=== PATIENT | male | born 1970 | race Hispanic/Latino ===

== ENCOUNTER 2018-12-28 22:27 | Emergency (ER) | payer BC ==
[2018-12-28] MEDS ORDERED: NA CHLORIDE 0.9% 1,000 ML ONE (23:20)
[2018-12-28] MEDS ORDERED: KETOROLAC 30 MG/ML INJ ONE (23:20)
[2018-12-28 23:39] LABS: Absolute Lymphocytes (CBC) 1.8 K/uL (0.7-4.9); Basophils % 0.2 % (0-1.3); Hematocrit 36.5 % (39.6-49.0); Lymphocytes % 20.7 % (15.3-44.8); MPV 10.2 fL (7.6-11.3); RBC Red Blood Cell Count 4.38 M/uL (4.33-5.43)
[2018-12-28 23:48] LABS: Albumin 3.1 g/dL (3.4-5.0); Bilirubin Total 0.4 mg/dL (0.2-1.0); Potassium 3.9 mmol/L (3.5-5.1); Protein, Total 7.5 g/dL (6.4-8.2)
[2018-12-29] MEDS ORDERED: SMZ./TMP. 800/160 MG TABLET ONE (00:08)
[2018-12-29] MEDS ORDERED: DOXYCYCLINE 100 MG CAP PO ONE (00:09)
--- NOTE | 2018-12-29 00:21 | ER ---
Nurse's Notes [facility] Name: Jeff Keller Age: 48 yrs Sex: Male : 1970 Arrival Date: 12/28/2018 Time: 22:33 Bed 18 Private MD: Maikel Coulter R Diagnosis: Pain in left knee-hematoma;Type 2 diabetes mellitus;Cellulitis and acute lymphangitis of other parts of limb Presentation: 12/28 22:40 Presenting complaint: Patient states: slip and fall on bubbles at work on Tuesday. pt ak1 finished his shift on Tuesday. pt c/o increase pain, redness and swelling to left knee. Transition of care: patient was not received from another setting of care. Onset of symptoms was December 28, 2018. Risk Assessment: Do you want to hurt yourself or someone else? Patient reports no desire to harm self or others. Initial Sepsis Screen: Does the patient meet any 2 criteria? No. Patient's initial sepsis screen is negative. Does the patient have a suspected source of infection? No. Patient's initial sepsis screen is negative. Care prior to arrival: None. 22:40 Method Of Arrival: Ambulatory ak1 22:40 Acuity: RAVINDRA 3 ak1 Triage Assessment: 22:41 General: Appears in no apparent distress. uncomfortable, Behavior is calm, cooperative. ak1 Pain: Complains of pain in left leg. 23:00 Injury Description: slipped and fell last Tuesday and sustained injury to left knee. cc3 Historical: - Allergies: 22:41 No Known Allergies; ak1 - Home Meds: 22:41 Unable to obtain [Active]; ak1 - PMHx: 22:41 Diabetes - NIDDM; ak1 - PSHx: 22:41 None; ak1 - Immunization history:: Adult Immunizations unknown. - Social history:: Smoking status: Patient/guardian denies using tobacco. - Ebola Screening: : No symptoms or risks identified at this time. - Family history:: not pertinent. Screenin:41 Abuse screen: Denies threats or abuse. Denies injuries from another. Nutritional ak1 screening: No deficits noted. Tuberculosis screening: No symptoms or risk factors identified. Fall Risk Ambulatory Aid- Crutches/Cane/Walker (15 pts). Assessment: 23:00 General: Appears in no apparent distress. uncomfortable, Behavior is calm, cooperative, cc3 appropriate for age. Pain: Complains of pain in left rob and left knee Quality of pain is described as aching. Neuro: Level of Consciousness is awake, alert, obeys commands, Oriented to person, place, time, situation, Appropriate for age. Cardiovascular: Denies chest pain, Patient's skin is warm and dry. Respiratory: Airway is patent Respiratory effort is even, unlabored, Respiratory pattern is regular, symmetrical. GI: Abdomen is round obese. : No signs and/or symptoms were reported regarding the genitourinary system. EENT: No signs and/or symptoms were reported regarding the EENT system. Derm: Skin is intact, Skin is pink, warm \T\ dry. normal, swelling and redness on the left knee downwards. Musculoskeletal: Circulation, motion, and sensation intact. Range of motion: limited in left knee Swelling present in left knee, left lower leg. 23:00 Injury Description: slipped and fell on Tuesday. cc3 12/29 00:15 Reassessment: Patient appears in no apparent distress at this time. Patient and/or cc3 family updated on plan of care and expected duration. Pain level reassessed. Patient is alert, oriented x 3, equal unlabored respirations, skin warm/dry/pink. Patient states feeling better. Patient states symptoms have improved. 01:10 Reassessment: Patient appears in no apparent distress at this time. Patient and/or cc3 family updated on plan of care and expected duration. Pain level reassessed. Patient is alert, oriented x 3, equal unlabored respirations, skin warm/dry/pink. Dr. Luque discharged the patient home with prescriptions given. IV cannula removed and patient left ER vitally stable and ambulatory on his wheeled walker with his friend. No valuables left in the patient's room. Patient denies pain at this time. Patient states feeling better. Patient states symptoms have improved. Vital Signs: 12/28 22:39 BP 146 / 72; Pulse 90; Resp 20; Temp 97.8; Pulse Ox 100% on R/A; Weight 124.74 kg (R); ak1 Height 5 ft. 11 in. (180.34 cm); Pain 7/10; 23:50 BP 132 / 62; Pulse 69; Resp 17 S; Pulse Ox 100% on R/A; cc3 12/29 01:00 BP 124 / 67; Pulse 67; Resp 17 S; Pulse Ox 99% on R/A; cc3 12/28 22:39 Body Mass Index 38.35 (124.74 kg, 180.34 cm) ak1 ED Course: 12/28 22:33 Patient arrived in ED. mr 22:33 Maikel Coulter MD is Private Physician. mr 22:39 Arm band placed on. Patient placed in an exam room, on a stretcher, Patient notified of ak1 wait time. 22:41 Triage completed. ak1 22:41 Patient has correct armband on for positive identification. Bed in low position. Call ak1 light in reach. Side rails up X 1. 22:45 Tyler Luque MD is Attending Physician. linda 23:00 Bridgette Muniz is Primary Nurse. cc3 23:41 Knee Left 3 View XRAY In Process Unspecified. EDMS 12/29 00:10 Maikel Coulter MD is Referral Physician. linda 00:10 Stephen La MD is Referral Physician. linda 01:10 No provider procedures requiring assistance completed. IV discontinued, intact, cc3 bleeding controlled, No redness/swelling at site. Pressure dressing applied. 01:12 US Extremity Venous Unilateral Ltd In Process Unspecified. EDMS Administered Medications: 12/28 23:15 Drug: NS 0.9% 1000 ml Route: IV; Rate: 1 bolus; Site: right antecubital; cc3 12/29 00:20 Follow up: Response: No adverse reaction; IV Status: Completed infusion; IV Intake: cc3 1000ml 12/28 23:15 Drug: TORadol 30 mg Route: IVP; Site: right antecubital; cc3 12/29 00:00 Follow up: Response: No adverse reaction; Pain is decreased cc3 12/28 23:50 Drug: Doxycycline 200 mg Route: PO; cc3 12/29 00:00 Follow up: Response: No adverse reaction cc3 12/28 23:50 Drug: Bactrim (160 mg-800 mg (DS) 1 tablet Route: PO; cc3 12/29 00:00 Follow up: Response: No adverse reaction cc3 00:09 CANCELLED (Duplicate Order): Insulin Regular Human 10 units IVP once [facility] 00:28 CANCELLED (Physician Discretion): Insulin Regular Human 6 units Sub-Q once cc3 00:28 CANCELLED (Physician Discretion): Insulin Regular Human 6 units IVP once cc3 00:35 Drug: Insulin Regular Human 5 units {Co-Signature: [email or web address] (Juice Thompson RN).} Route: cc3 Sub-Q; Site: right upper arm; 01:04 Follow up: Response: No adverse reaction; Blood sugar is lowered cc3 00:36 Drug: Insulin Regular Human 5 units {Co-Signature: [email or web address] (Juice Thompson RN).} Route: IVP; cc3 Site: right antecubital; 01:04 Follow up: Response: No adverse reaction; Blood sugar is lowered cc3 Point of Care Testing: Blood Glucose: 00:26 Blood Glucose: 330 mg/dL; cc3 01:04 Blood Glucose: 252 mg/dL; cc3 Ranges: Intake: 00:20 IV: 1000ml; Total: 1000ml. cc3 Outcome: 00:10 Discharge ordered by MD. mckeon 01:10 Discharged to home ambulatory, with friend, with left knee immobilizer using his own cc3 wheeled walker 01:10 Condition: stable 01:10 Discharge instructions given to patient, Instructed on discharge instructions, follow up and referral plans. medication usage, Demonstrated understanding of instructions, follow-up care, medications, Prescriptions given X 4. 01:15 Patient left the ED. cc3 Signatures: Dispatcher [employer] Tyler Jones MD MD cha Rivera, Mary mr LeavittHoa, RN RN ak1 Bridgette Muniz cc3 Juice Thompson RN [email or web address] Corrections: (The following items were deleted from the chart) 01:40 12/28 23:00 Musculoskeletal: Circulation, motion, and sensation intact. Range of cc3 motion: limited in left knee Swelling present in left knee, left lower leg cc3 12/29 01:51 00:15 Reassessment: Patient appears in no apparent distress at this time. Patient cc3 and/or family updated on plan of care and expected duration. Pain level reassessed. Patient is alert, oriented x 3, equal unlabored respirations, skin warm/dry/pink. cc3
--- NOTE | 2018-12-29 00:25 | EDPHYS ---
Physician Documentation [facility] Name: Jeff Keller Age: 48 yrs Sex: Male : 1970 Arrival Date: 12/28/2018 Time: 22:33 Bed 18 Private MD: Maikel Coulter R ED Physician Tyler Luque HPI: 12/28 22:57 This 48 yrs old Male presents to ER via Ambulatory with complaints of Knee linda Injury. 22:57 The patient presents with decreased range of motion, pain, that is acute. The linda complaints affect the lateral aspect of left knee, medial aspect of left knee and left knee. Context: The problem was sustained at work, resulted from a direct blow, the patient falling, the patient can partially bear weight, uses a walker, Problem is a result from a previous injury: No. Onset: The symptoms/episode began/occurred 5 day(s) ago. Modifying factors: The symptoms are alleviated by elevating leg, remaining still, the symptoms are aggravated by movement, bending knee. Associated signs and symptoms: The patient has no apparent associated signs or symptoms. Treatment prior to arrival includes: no previous treatment. Severity of symptoms: At their worst the symptoms were moderate, in the emergency department the symptoms are unchanged. The patient has not experienced similar symptoms in the past. Historical: - Allergies: 22:41 No Known Allergies; ak1 - Home Meds: 22:41 Unable to obtain [Active]; ak1 - PMHx: 22:41 Diabetes - NIDDM; ak1 - PSHx: 22:41 None; ak1 - Immunization history:: Adult Immunizations unknown. - Social history:: Smoking status: Patient/guardian denies using tobacco. - Ebola Screening: : No symptoms or risks identified at this time. - Family history:: not pertinent. ROS: 22:57 Constitutional: Negative for fever, chills, and weight loss, Eyes: Negative for injury, linda pain, redness, and discharge, ENT: Negative for injury, pain, and discharge, Neck: Negative for injury, pain, and swelling, Cardiovascular: Negative for chest pain, palpitations, and edema, Respiratory: Negative for shortness of breath, cough, wheezing, and pleuritic chest pain, Abdomen/GI: Negative for abdominal pain, nausea, vomiting, diarrhea, and constipation, Back: Negative for injury and pain, : Negative for injury, bleeding, discharge, and swelling, Neuro: Negative for headache, weakness, numbness, tingling, and seizure, Psych: Negative for depression, anxiety, suicide ideation, homicidal ideation, and hallucinations, Allergy/Immunology: Negative for hives, rash, and allergies, Endocrine: Negative for neck swelling, polydipsia, polyuria, polyphagia, and marked weight changes, Hematologic/Lymphatic: Negative for swollen nodes, abnormal bleeding, and unusual bruising. 22:57 MS/extremity: Positive for decreased range of motion, pain, swelling, tenderness, warmth, of the lateral aspect of left thigh, lateral aspect of left knee, lateral aspect of left calf, medial aspect of left thigh, medial aspect of left knee, medial aspect of left calf, left quadriceps, left knee and left rob. Exam: 22:57 Constitutional: This is a well developed, well nourished patient who is awake, alert, ilnda and in no acute distress. Head/Face: Normocephalic, atraumatic. Eyes: Pupils equal round and reactive to light, extra-ocular motions intact. Lids and lashes normal. Conjunctiva and sclera are non-icteric and not injected. Cornea within normal limits. Periorbital areas with no swelling, redness, or edema. ENT: Nares patent. No nasal discharge, no septal abnormalities noted. Tympanic membranes are normal and external auditory canals are clear. Oropharynx with no redness, swelling, or masses, exudates, or evidence of obstruction, uvula midline. Mucous membranes moist. Neck: Trachea midline, no thyromegaly or masses palpated, and no cervical lymphadenopathy. Supple, full range of motion without nuchal rigidity, or vertebral point tenderness. No Meningismus. Chest/axilla: Normal chest wall appearance and motion. Nontender with no deformity. No lesions are appreciated. Cardiovascular: Regular rate and rhythm with a normal S1 and S2. No gallops, murmurs, or rubs. Normal PMI, no JVD. No pulse deficits. Respiratory: Lungs have equal breath sounds bilaterally, clear to auscultation and percussion. No rales, rhonchi or wheezes noted. No increased work of breathing, no retractions or nasal flaring. Abdomen/GI: Soft, non-tender, with normal bowel sounds. No distension or tympany. No guarding or rebound. No evidence of tenderness throughout. Back: No spinal tenderness. No costovertebral tenderness. Full range of motion. Male : Normal genitalia with no discharge or lesions. Skin: Warm, dry with normal turgor. Normal color with no rashes, no lesions, and no evidence of cellulitis. Neuro: Awake and alert, GCS 15, oriented to person, place, time, and situation. Cranial nerves II-XII grossly intact. Motor strength 5/5 in all extremities. Sensory grossly intact. Cerebellar exam normal. Normal gait. Psych: Awake, alert, with orientation to person, place and time. Behavior, mood, and affect are within normal limits. 22:57 Musculoskeletal/extremity: ROM: limited active range of motion, limited passive range of motion, Circulation is intact in all extremities. Sensation intact. Compartment Syndrome exam of affected extremity: is normal. DVT Exam: negative Homans' sign noted on exam, no appreciated bluish discoloration, pain, swelling, tenderness, erythema, increased warmth, of the left leg, of the lateral aspect of left thigh, lateral aspect of left knee, lateral aspect of left calf, medial aspect of left thigh, medial aspect of left knee, medial aspect of left calf, left quadriceps, left knee and left rob. Vital Signs: 22:39 BP 146 / 72; Pulse 90; Resp 20; Temp 97.8; Pulse Ox 100% on R/A; Weight 124.74 kg (R); ak1 Height 5 ft. 11 in. (180.34 cm); Pain 7/10; 23:50 BP 132 / 62; Pulse 69; Resp 17 S; Pulse Ox 100% on R/A; cc3 12/29 01:00 BP 124 / 67; Pulse 67; Resp 17 S; Pulse Ox 99% on R/A; cc3 12/28 22:39 Body Mass Index 38.35 (124.74 kg, 180.34 cm) ak1 MDM: 12/28 22:[address] [facility] 22:57 Data reviewed: vital signs, nurses notes, lab test result(s), radiologic studies, plain linda films. 12/28 22:57 Order name: CBC with Diff; Complete Time: 00:08 [facility] 12/28 22:57 Order name: Comprehensive Metabolic Panel; Complete Time: 00:08 [facility] 12/28 22:57 Order name: US Extremity Venous Unilateral Ltd [facility] 12/28 22:57 Order name: Knee Left [address] [facility] 12/28 22:57 Order name: Blood Culture Adult (2) [facility] 12/28 23:41 Order name: Knee Immobilizer; Complete Time: 00:44 [facility] Administered Medications: 23:15 Drug: NS 0.9% 1000 ml Route: IV; Rate: 1 bolus; Site: right antecubital; 3 12/29 00:20 Follow up: Response: No adverse reaction; IV Status: Completed infusion; IV Intake: cc3 1000ml 12/28 23:15 Drug: TORadol 30 mg Route: IVP; Site: right antecubital; 3 12/29 00:00 Follow up: Response: No adverse reaction; Pain is decreased [facility] 12/28 23:50 Drug: Doxycycline 200 mg Route: PO; 3 12/29 00:00 Follow up: Response: No adverse reaction [facility] 12/28 23:50 Drug: Bactrim (160 mg-800 mg (DS) 1 tablet Route: PO; 3 12/29 00:00 Follow up: Response: No adverse reaction 3 00:09 CANCELLED (Duplicate Order): Insulin Regular Human [address] [facility] 00:28 CANCELLED (Physician Discretion): Insulin Regular Human 6 units Sub-Q once [facility] 00:28 CANCELLED (Physician Discretion): Insulin Regular Human 6 units IVP once 3 00:35 Drug: Insulin Regular Human 5 units {Co-Signature: [email or web address] (Juice Thompson RN).} Route: cc3 Sub-Q; Site: right upper arm; 01:04 Follow up: Response: No adverse reaction; Blood sugar is lowered 3 00:36 Drug: Insulin Regular Human 5 units {Co-Signature: [email or web address] (Juice Thompson RN).} Route: IVP; cc3 Site: right antecubital; 01:04 Follow up: Response: No adverse reaction; Blood sugar is lowered cc3 Point of Care Testing: Blood Glucose: 00:26 Blood Glucose: 330 mg/dL; cc3 01:04 Blood Glucose: 252 mg/dL; cc3 Ranges: Critical Glucose Levels:Adult <50 mg/dl or >400 mg/dl <40 mg/dl or >180 mg/dl Disposition: 12/29/18 00:10 Discharged to Home. Impression: Pain in left knee - hematoma, Type 2 diabetes mellitus, Cellulitis and acute lymphangitis of other parts of limb. - Condition is Stable. - Discharge Instructions: Type 2 Diabetes Mellitus, Diagnosis, Adult, How to Use a Knee Brace, Knee Pain, Cellulitis, Adult, [id number], Diabetes Mellitus and Food, Type 2 Diabetes Mellitus, Diagnosis, Adult, [id number]. - Prescriptions for Ibuprofen 600 mg Oral Tablet - take 1 tablet by ORAL route every 6 hours As needed take with food; 30 tablet. Tylenol- Codeine #3 300-30 mg Oral Tablet - take 2 tablet by ORAL route every 6 hours As needed; 30 tablet. Doxycycline Hyclate 100 mg Oral Tablet - take 1 tablet by ORAL route every 12 hours; 20 tablet. Bactrim DS 800- 160 mg Oral Tablet - take 1 tablet by ORAL route every 12 hours for 10 days; 20 tablet. - Medication Reconciliation Form, Thank You Letter, Antibiotic Education, Prescription Opioid Use form. - Follow up: Maikel Coulter; When: 2 - 3 days; Reason: Recheck today's complaints, Continuance of care, Re-evaluation by your physician. Follow up: Stephen La; When: 2 - 3 days; Reason: Recheck today's complaints, Re-evaluation by your physician. - Problem is new. - Symptoms have improved. Signatures: Dispatcher [employer] EDMS Tyler Luque MD MD cha Krenek, Amber, RN RN ak1 Bridgette Muniz cc3 Juice Thompson RN [email or web address] Corrections: (The following items were deleted from the chart) 00:09 00:09 Insulin Regular Human 10 units IVP once ordered. linda mckeon 00:28 00:09 Insulin Regular Human 6 units Sub-Q once ordered. [place] [id number] 00:28 00:10 Insulin Regular Human 6 units IVP once ordered. [place] [id number] 01:15 00:10 12/29/2018 00:10 Discharged to Home. Impression: Pain in left knee - hematoma; cc3 Type 2 diabetes mellitus; Cellulitis and acute lymphangitis of other parts of limb. Condition is Stable. Discharge Instructions: Type 2 Diabetes Mellitus, Diagnosis, Adult, How to Use a Knee Brace, Knee Pain, Cellulitis, Adult, [id number], Diabetes Mellitus and Food, Type 2 Diabetes Mellitus, Diagnosis, Adult, [id number]. Prescriptions for Ibuprofen 600 mg Oral Tablet - take 1 tablet by ORAL route every 6 hours As needed take with food; 30 tablet, Tylenol-Codeine #3 300-30 mg Oral Tablet - take 2 tablet by ORAL route every 6 hours As needed; 30 tablet, Doxycycline Hyclate 100 mg Oral Tablet - take 1 tablet by ORAL route every 12 hours; 20 tablet, Bactrim DS 800-160 mg Oral Tablet - take 1 tablet by ORAL route every 12 hours for 10 days; 20 tablet. and Forms are Medication Reconciliation Form, Thank You Letter, Antibiotic Education, Prescription Opioid Use. Follow up: Maikel Coulter; When: 2 - 3 days; Reason: Recheck today's complaints, Continuance of care, Re-evaluation by your physician. Follow up: Stephen La; When: 2 - 3 days; Reason: Recheck today's complaints, Re-evaluation by your physician. Problem is new. Symptoms have improved. linda
[2018-12-29] MEDS ORDERED: INSULIN -REGULAR HUMAN 50 UNIT/0.5 ML ML ONE (00:51)
[2018-12-29 01:20] VITALS: TEMP 97.8; O2SAT 100
[2018-12-29 01:21] VITALS: BP 132/62
--- NOTE | 2018-12-29 08:29 | RAD REPORT ---
EXAM DESCRIPTION: USExtremity Venous Uni Ltd12/29/2018 12:21 am CLINICAL HISTORY: left leg pain COMPARISON: None. FINDINGS: Left common femoral, superficial femoral, popliteal and posterior tibial veins are compre ssible and demonstrate augmentation. Doppler demonstrates good flow. Two fluid collections left knee. One measures 6 x 0.6 x 4 centimeters. The other 3 x 0.5 x 1.4 centim eters IMPRESSION: No evidence of deep venous thrombosis involving the left lower extremity. Two fluid collections may indicate Anderson's cysts, inflammatory or hematomas
--- NOTE | 2018-12-29 08:30 | RAD REPORT ---
EXAM DESCRIPTION: RAD - Knee Left 3 View - 12/28/2018 11:40 pm CLINICAL HISTORY: Left knee pain status post injury FINDINGS: No fracture or dislocation is seen. If patient continues have symptoms to suggest an occul t fracture, ligamentous or meniscal injury MRI would be recommended Diffuse edema is present within the subcutaneous tissues which may indicate cellulitis or venous maren is Small joint effusion is suspected
== END 2018-12-29 01:15 | disposition home or self-care (01) ==
LOC: ER 22:27
DX: S80.02XA Contusion of left knee, initial encounter (principal); L03.116 Cellulitis of left lower limb; I89.1 Lymphangitis; E11.9 Type 2 diabetes mellitus without complications
CPT/HCPCS: 36415; 80053; 82962; 85025; 87040; 93971; 96361; 96372; 96374; 96375; 99283; J7030

== ENCOUNTER 2019-01-05 18:07 | Observation (INO) | payer BC, OTHER ==
[2019-01-05 19:43] LABS: Absolute Lymphocytes (CBC) 2.6 K/uL (0.7-4.9); Basophils % 0.2 % (0-1.3); Hematocrit 42.4 % (39.6-49.0); Lymphocytes % 32.6 % (15.3-44.8); MPV 8.4 fL (7.6-11.3)
[2019-01-05] MEDS ORDERED: FENTANYL CITR 100 MCG/2 ML ONE (19:43)
[2019-01-05 19:48] LABS: Protime INR 1.19
[2019-01-05 19:57] LABS: Urine Blood NEGATIVE (NEG); Urine Glucose NEGATIVE (NEG); Urine Protein TRACE (NEG); Urine Specific Gravity >1.030 (1.005-1.030); Urine pH 5.5 (5.0-7.0)
[2019-01-05 20:02] LABS: Urine Bacteria NONE SEEN /HPF (NONE SEEN); Urine Culture Reflex Order NOT NEEDED; Urine Mucus 1+ /HPF (NONE SEEN); Urine RBC NONE SEEN /HPF (NONE SEEN)
[2019-01-05 20:03] LABS: ALT/SGPT 62 U/L (12-78); AST/SGOT 35 U/L (15-37); Albumin 3.3 g/dL (3.4-5.0); Alkaline Phosphatase 79 U/L (45-117); BUN Blood Urea Nitrogen 21 mg/dL (7-18); Bicarbonate 24 mmol/L (21-32); Bilirubin Direct < 0.1 mg/dL (0-0.2); Bilirubin Total 0.3 mg/dL (0.2-1.0); Glucose Level 146 mg/dL (74-106); Potassium 4.7 mmol/L (3.5-5.1); Protein, Total 9.2 g/dL (6.4-8.2); Sodium Level 135 mmol/L (136-145)
[2019-01-05] MEDS ORDERED: LIDOCAINE 1% 20 ML MDV ONE (20:06)
[2019-01-05] MEDS ORDERED: LIDOCAINE 1.5% W/EPI AMP 5 ML ONE (20:17)
[2019-01-05] MEDS ORDERED: BUPIVACAINE 0.5% PF 10 ML VIAL ONE (20:35)
[2019-01-05] MEDS ORDERED: SMZ./TMP. 800/160 MG TABLET ONE (21:07)
--- NOTE | 2019-01-05 21:07 | ER ---
Nurse's Notes [facility] Name: Jeff Keller Age: 48 yrs Sex: Male : 1970 Arrival Date: 01/05/2019 Time: 18:09 Bed 26 Private MD: Diagnosis: Cellulitis of left lower limb Presentation: 01/05 18:23 Presenting complaint: Left knee redness and swelling since this morning. Reports fall hb from standing 2 weeks ago. Transition of care: patient was not received from another setting of care. Onset of symptoms was January 05, 2019. Risk Assessment: Do you want to hurt yourself or someone else? Patient reports no desire to harm self or others. Care prior to arrival: None. 18:23 Method Of Arrival: Ambulatory hb 18:23 Acuity: RAVINDRA 3 hb 18:44 Initial Sepsis Screen: Does the patient meet any 2 criteria? No. Patient's initial la1 sepsis screen is negative. Does the patient have a suspected source of infection? No. Patient's initial sepsis screen is negative. Historical: - Allergies: 18:27 No Known Allergies; hb - Home Meds: 18:27 Metformin Oral [Active]; Pravachol Oral [Active]; Glimepiride Oral [Active]; losartan hb oral oral [Active]; - PMHx: 18:27 Diabetes - NIDDM; hb - PSHx: 18:27 None; hb - Immunization history:: Adult Immunizations up to date. - Social history:: Smoking status: Patient/guardian denies using tobacco. - Ebola Screening: : No symptoms or risks identified at this time. Screenin:43 Abuse screen: Denies threats or abuse. Nutritional screening: No deficits noted. la1 Tuberculosis screening: No symptoms or risk factors identified. Fall Risk None identified. Assessment: 18:42 General: Appears in no apparent distress. Behavior is calm, cooperative. Pain: la1 Complains of pain in left knee. Neuro: Level of Consciousness is awake, alert, obeys commands, Oriented to person, place, time, situation. Cardiovascular: Capillary refill < 3 seconds Patient's skin is warm and dry. Respiratory: Airway is patent Respiratory effort is even, unlabored, Respiratory pattern is regular, symmetrical, Breath sounds are clear bilaterally. GI: No signs and/or symptoms were reported involving the gastrointestinal system. : No signs and/or symptoms were reported regarding the genitourinary system. Derm: swelling and redness noted to left knee. Musculoskeletal: Circulation, motion, and sensation intact. Range of motion: pain with passive and active ROM to left nkee. 20:22 Reassessment: Patient appears in no apparent distress at this time. No changes from la1 previously documented assessment. Patient and/or family updated on plan of care and expected duration. Pain level reassessed. Patient is alert, oriented x 3, equal unlabored respirations, skin warm/dry/pink. 21:51 Reassessment: Patient appears in no apparent distress at this time. No changes from la1 previously documented assessment. Patient and/or family updated on plan of care and expected duration. Pain level reassessed. Patient is alert, oriented x 3, equal unlabored respirations, skin warm/dry/pink. Vital Signs: 18:24 BP 136 / 78; Pulse 102; Resp 18; Temp 97.4; Pulse Ox 100% on R/A; Weight 124.74 kg; hb Height 5 ft. 11 in. (180.34 cm); Pain 9/10; 20:04 BP 127 / 89; Pulse 97; Resp 20; Pulse Ox 98% on R/A; la1 20:22 BP 122 / 91; Pulse 101; Resp 16; Pulse Ox 98% on R/A; la1 22:43 BP 117 / 73; Pulse 85; Resp 16; Pulse Ox 98% on R/A; la1 18:24 Body Mass Index 38.35 (124.74 kg, 180.34 cm) hb ED Course: 18:09 Patient arrived in ED. as 18:24 Triage completed. hb 18:24 Arm band placed on. hb 18:27 Angel Luis Arshad, RN is Primary Nurse. la1 18:34 Tyler Lutz PA is PHCP. cp 18:34 Gerald Wilkinson MD is Attending Physician. cp 18:43 Call light in reach. Side rails up X 1. Pulse ox on. NIBP on. la1 19:24 Missed attempt(s): 20 gauge in right antecubital area. Bleeding controlled, band aid ca1 applied, catheter tip intact. 19:48 Tyler Luque MD is Attending Physician. cp 21:05 Mini Law MD is Hospitalizing Provider. cp 23:14 Knee Left W Con In Process Unspecified. EDMS 23:28 No provider procedures requiring assistance completed. Patient admitted, IV remains in la1 place. Administered Medications: 19:40 Drug: fentaNYL (PF) 25 mcg Route: IVP; Site: left antecubital; ca1 20:47 Follow up: Response: No adverse reaction; Pain is decreased la1 20:47 Drug: Lidocaine-Epinephrine -2 % (1:100,000) 5 ml Route: Infiltration; la1 21:10 Drug: Bactrim (160 mg-800 mg (DS) 1 tablet Route: PO; ca1 21:51 Follow up: Response: No adverse reaction la1 21:10 Drug: Doxycycline 100 mg Route: PO; ca1 21:51 Follow up: Response: No adverse reaction la1 21:14 Drug: Clindamycin 900 mg Route: IVPB; Infused Over: 30 mins; Site: left antecubital; ca1 21:51 Follow up: IV Status: Infusion continued upon admission la1 Outcome: 21:06 Decision to Hospitalize by Provider. cp 23:28 Admitted to Med/surg accompanied by tech, via stretcher, with chart. la1 23:28 Condition: stable 23:28 Instructed on the need for admit. 23:28 Patient left the ED. la1 Signatures: Dispatcher [employer] Ana Lilia Espinosa Lee, RN RN la1 Tyler Lutz PA PA cp Baxter, Heather, RN RN Mary Alice Santos RN RN ca1
--- NOTE | 2019-01-05 21:07 | EDPHYS ---
Physician Documentation [facility] Name: Jeff Keller Age: 48 yrs Sex: Male : 1970 Arrival Date: 01/05/2019 Time: 18:09 Bed 26 Private MD: ED Physician Tyler Luque HPI: 01/05 19:12 This 48 yrs old Male presents to ER via Ambulatory with complaints of r/o cp septic joint vs bursitis. 19:12 The patient presents with pain, swelling, tenderness, erythema. cp 19:12 The complaints affect the left knee. Context: The problem was sustained at work, cp resulted from the patient falling, the patient can partially bear weight, the patient is able to ambulate, with moderate difficulty. 19:12 Associated signs and symptoms: Pertinent negatives calf tenderness, fever, numbness. cp 19:12 Patient currently taking prescribed Bactrim and Doxycycline. cp Historical: - Allergies: 18:27 No Known Allergies; hb - Home Meds: 18:27 Metformin Oral [Active]; Pravachol Oral [Active]; Glimepiride Oral [Active]; losartan hb oral oral [Active]; - PMHx: 18:27 Diabetes - NIDDM; hb - PSHx: 18:27 None; hb - Immunization history:: Adult Immunizations up to date. - Social history:: Smoking status: Patient/guardian denies using tobacco. - Ebola Screening: : No symptoms or risks identified at this time. ROS: 19:30 Constitutional: Negative for body aches, fever, poor PO intake. cp 19:30 Eyes: Negative for injury, pain, redness, and discharge. cp 19:30 Cardiovascular: Negative for chest pain, edema, palpitations. cp 19:30 ENT: Negative for drainage from ear(s), ear pain, sore throat, difficulty swallowing, cp difficulty handling secretions. 19:30 Respiratory: Negative for cough, shortness of breath, wheezing. 19:30 Abdomen/GI: Negative for abdominal pain, nausea, vomiting, and diarrhea. 19:30 Skin: Positive for erythema, swelling, of the anterior aspect left knee. 19:30 Neuro: Negative for altered mental status, headache, weakness. 19:30 All other systems are negative. Exam: 19:30 ECG was reviewed by the Attending Physician. cp 19:35 Constitutional: The patient appears in no acute distress, alert, awake, non-toxic, well cp developed, well nourished, obese. 19:35 Head/Face: Normocephalic, atraumatic. cp 19:35 Eyes: Periorbital structures: appear normal, Conjunctiva: normal, no exudate, no injection, Sclera: no appreciated abnormality, Lids and lashes: appear normal, bilaterally. 19:35 ENT: External ear(s): are unremarkable, Nose: is normal, Mouth: Lips: moist, Oral mucosa: pink and intact, moist, Posterior pharynx: is normal, airway is patent, no erythema, no exudate. 19:35 Chest/axilla: Inspection: normal, Palpation: is normal, no crepitus, no tenderness. 19:35 Cardiovascular: Rate: tachycardic, Rhythm: regular. 19:35 Respiratory: the patient does not display signs of respiratory distress, Respirations: normal, no use of accessory muscles, no retractions, no splinting, no tachypnea, labored breathing, is not present, Breath sounds: are clear throughout, no decreased breath sounds, no stridor, no wheezing. 19:35 Abdomen/GI: Exam negative for discomfort, distension, guarding, Inspection: abdomen appears normal. 19:35 Musculoskeletal/extremity: Perfusion: the extremity is normally perfused throughout, Sensation intact. Joints: All joints are normal except the left knee displays painful range of motion, swelling, tenderness. 19:35 Skin: cellulitis, that is moderate, on the anterior aspect of left knee. Vital Signs: 18:24 BP 136 / 78; Pulse 102; Resp 18; Temp 97.4; Pulse Ox 100% on R/A; Weight 124.74 kg; hb Height 5 ft. 11 in. (180.34 cm); Pain 9/10; 20:04 BP 127 / 89; Pulse 97; Resp 20; Pulse Ox 98% on R/A; la1 20:22 BP 122 / 91; Pulse 101; Resp 16; Pulse Ox 98% on R/A; la1 22:43 BP 117 / 73; Pulse 85; Resp 16; Pulse Ox 98% on R/A; la1 18:24 Body Mass Index 38.35 (124.74 kg, 180.34 cm) hb Procedures: 21:00 I \T\ D: Incision and drainage was performed for an abscess of the left knee Prepped with Betadine, Anesthetized with 20 ml's 1% Lidocaine. 5 ml's 1% Lidocaine w/ Epi. Incised with #11 blade. Drained moderate amount purulent fluid. bloody fluid. Cultures obtained. Abscess cavity explored. Packed with iodoform gauze, Dressing: sterile 4x4 gauze, the patient tolerated the procedure well. MDM: 18:56 Patient medically screened. 21:00 Data reviewed: vital signs, nurses notes, lab test result(s). 21:00 Response to treatment: the patient's symptoms have markedly improved after treatment, and as a result, I will admit patient. 21:03 Physician consultation: Mini Law MD was called at 21:04, was contacted at 21:04, regarding admission. 01/05 19:10 Order name: C-Reactive Protein 01/05 19:10 Order name: Sed Rate 01/05 19:10 Order name: Basic Metabolic Panel 01/05 19:10 Order name: Blood Culture Adult (2) 01/05 19:10 Order name: CBC with Diff 01/05 20:11 Interpretation: Normal except: HCT 42.4; PLT 299; MPV 8.4. 01/05 19:10 Order name: Lactate; Complete Time: 20:10 01/05 19:10 Order name: LFT's; Complete Time: 20:10 01/05 19:10 Order name: Procalcitonin 01/05 19:10 Order name: Protime (+inr); Complete Time: 20:10 01/05 19:10 Order name: Ptt, Activated; Complete Time: 20:10 01/05 19:10 Order name: Urine Microscopic Only; Complete Time: 20:10 01/05 19:11 Order name: C-Reactive Protein; Complete Time: 20:10 EDMS 01/05 19:11 Order name: Sedimentation Rate, [place] EDMS 01/05 19:11 Order name: Basic Metabolic Panel; Complete Time: 20:10 EDMS 01/05 20:10 Interpretation: Normal except: NA 135; GLUC 146; BUN 21; GFR 73. 01/05 19:10 Order name: Accucheck; Complete Time: 19:28 cp 01/05 19:10 Order name: Cardiac monitoring; Complete Time: 19:28 cp 01/05 19:10 Order name: EKG - Nurse/Tech; Complete Time: 19:28 cp 01/05 19:10 Order name: IV Saline Lock - Large Bore; Complete Time: 19:28 cp 02 19:10 Order name: Labs collected and sent; Complete Time: 19:28 cp 01/05 19:10 Order name: O2 Per Protocol; Complete Time: 19:28 cp 01/05 19:11 Order name: Blood Culture EDAZ 01/05 19:28 Order name: Glucose, Ancillary Testing; Complete Time: 20:10 EDMS 01/05 19:52 Order name: Urine Dipstick--Ancillary (enter results); Complete Time: 20:10 cm6 01/05 21:04 Order name: Wound Culture [facility] 01/05 21:42 Order name: Knee Left W Con EDAZ 01/05 19:10 Order name: O2 Sat Monitoring; Complete Time: 19:28 cp 01/05 19:10 Order name: Urine Dipstick-Ancillary (obtain specimen); Complete Time: 19:42 cp EC:30 Rate is 103 beats/min. Rhythm is regular. TN interval is normal. QRS interval is cp normal. QT interval is normal. T waves are Inverted in lead III. Interpreted by me. Reviewed by me. Administered Medications: 19:40 Drug: fentaNYL (PF) 25 mcg Route: IVP; Site: left antecubital; ca1 20:47 Follow up: Response: No adverse reaction; Pain is decreased la1 20:47 Drug: Lidocaine-Epinephrine -2 % (1:100,000) 5 ml Route: Infiltration; la1 21:10 Drug: Bactrim (160 mg-800 mg (DS) 1 tablet Route: PO; ca1 21:51 Follow up: Response: No adverse reaction la1 21:10 Drug: Doxycycline 100 mg Route: PO; ca1 21:51 Follow up: Response: No adverse reaction la1 21:14 Drug: Clindamycin 900 mg Route: IVPB; Infused Over: 30 mins; Site: left antecubital; ca1 21:51 Follow up: IV Status: Infusion continued upon admission la1 Disposition: 01/05/19 21:06 Hospitalization ordered by Mini Law for Observation. Preliminary diagnosis is Cellulitis of left lower limb. - Bed requested for Telemetry/MedSurg (observation). - Status is Observation. la1 - Condition is Stable. - Problem is an ongoing problem. - Symptoms have improved. UTI on Admission? No Addendum: 01/08/2019 09:19 Co-signature as Attending Physician, Tyler Luque MD I agree with the assessment and c llanos plan of care. Signatures: Dispatcher [employer] EDTyler Godinez MD MD cha Chretien, Felicia, RN RN Angel Luis Arshad RN RN la1 Tyler Lutz PA PA Jeanette Rouse, RN RN Juice Thompson RN RN rr5 Mary Alice Santos RN RN ca1 Corrections: (The following items were deleted from the chart) 01/05 22:26 21:06 Hospitalization Ordered by Mini Law MD for Observation. Preliminary rr5 diagnosis is Cellulitis of left lower limb. Bed requested for Telemetry/MedSurg (observation). Status is Observation. Condition is Stable. Problem is an ongoing problem. Symptoms have improved. UTI on Admission? No. cp 23:28 22:26 01/05/2019 21:06 Hospitalization Ordered by Mini Law MD for Observation. la1 Preliminary diagnosis is Cellulitis of left lower limb. Bed requested for Telemetry/MedSurg (observation). Status is Observation. Condition is Stable. Problem is an ongoing problem. Symptoms have improved. UTI on Admission? No. rr5
[2019-01-05] MEDS ORDERED: CLINDAMYCIN 900MG/D5W 900 MG/50 ML IVPB IV ONE (21:08)
[2019-01-05] MEDS ORDERED: DOXYCYCLINE 100 MG CAP PO ONE (21:08)
[2019-01-05] MEDS ORDERED: ACETAMINOPHEN 500 MG TAB PO PRN (23:35)
[2019-01-05] MEDS ORDERED: ONDANSETRON 4 MG/2 ML VIAL IV PRN (23:35)
[2019-01-05] MEDS ORDERED: VANCOMYCIN/NS 1 gm 1 GM/250 ML BAG IVPB SCH (23:45)
[2019-01-06 00:11] VITALS: BMI 39.9
[2019-01-06] MEDS: NA CHLORIDE 0.9% 1,000 ML IV SCH ×4 (00:27→16:45)
[2019-01-06] MEDS: Levofloxacin500mg IV 500 MG/100 ML BAG IV SCH ×2 (00:36→21:44)
[2019-01-06] MEDS: VANCOMYCIN 2 GM in NA CHLORIDE 0.9% 500 ML IVPB SCH ×2 (01:00→13:26)
[2019-01-06 01:05] VITALS: O2SAT 98
[2019-01-06] MEDS ORDERED: VANCOMYCIN 500 MG/VIAL ONE (02:03)
[2019-01-06] MEDS ORDERED: VANCOMYCIN 1 GM/VIAL ONE (02:10)
[2019-01-06] MEDS ORDERED: NA CHLORIDE 0.9% 500 ML ONE (02:12)
[2019-01-06 04:53] LABS: Absolute Lymphocytes (CBC) 2.5 K/uL (0.7-4.9); Basophils % 0.2 % (0-1.3); Hematocrit 35.6 % (39.6-49.0); Lymphocytes % 35.7 % (15.3-44.8); MPV 8.4 fL (7.6-11.3); RBC Red Blood Cell Count 4.29 M/uL (4.33-5.43)
[2019-01-06 05:14] LABS: Potassium 4.7 mmol/L (3.5-5.1)
[2019-01-06] MEDS: HYDROMORPHONE HCL 1 MG/ML INJ IV PRN ×3 (08:19→16:49)
--- NOTE | 2019-01-06 14:56 | P.CNS ---
Date of Consult: 01/06/19 PC: This 48-year-old male presents emergency room with severe pain in his knee for diagnosis and treatment. HPC: Patient apparently had a fall few days ago. His legs swelled with quite a large bursa area. He came to emergency room were he underwent incision and drainage of this wound as well as placement of surgical packing. PMH: Negative PSHx: NAD SOC: No known allergies SYS REVIEW: No cough, wheeze, shortness of breath. No chest pain or palpitations. Denies any urinary complaints O/E wake alert stable HEENT: Not Herber Chest: Air movement equal bilaterally ABD: Soft LOCO: Has a wound it has been incised and drained in his lower leg. The drainage was removed. Wound itself is clean, there is resolving erythema around it. IMPRESSION: This patient had incision, drainage, of a wound to his knee. He is currently on antibiotics. PLAN: Will reassess in the a.m. but anticipate discharge tomorrow morning.
--- NOTE | 2019-01-06 16:39 | P.PN ---
Subjective Date of Service: 01/06/19 Patient seen and examined at bedside. No family at bedside. Chart reviewed and case discussed with nursing staff. Patient came to the ER after a fall a few days ago. He seemed to have leg swelling as well as a wound over left patella. He is status post incision and debridement in the ER. He denies any other medical problems, denies taking any other medications at home. This morning at the time of my exam, he was alert oriented x3, and hemodynamically stable. He was in mild to moderate distress due to pain, especially when uncovering the wound. Review of Systems 10-point ROS is otherwise unremarkable Physical Examination - Vital Signs Temperature: 98.0 F Blood Pressure: 124/74 Pulse: 67 Respirations: 18 Pulse Ox (%): 97 - Physical Exam General: Alert, Oriented x3, Mild distress, Moderate distress HEENT: Atraumatic, PERRLA, EOMI Neck: Supple, JVD not distended Respiratory: Clear to auscultation bilaterally, Normal air movement Cardiovascular: Regular rate/rhythm, Normal S1 S2 Gastrointestinal: Normal bowel sounds, No tenderness Musculoskeletal: Swelling (Over Left patella), Erythema, Tenderness Integumentary: Skin lesion, Other (Abscess of her left patella, bandage with serosanguineous drainage noted. When removed, packing in place.) Neurological: Normal speech, Normal tone, Normal affect Lymphatics: No axilla or inguinal lymphadenopathy - Studies Laboratory Data (last 24 hrs) 01/05/19 19:30: PT 14.0 H, INR 1.19, APTT 31.6 01/05/19 19:30: WBC 8.0, Hgb 14.3, Hct 42.4 D, Plt Count 299 D 01/05/19 19:30: Sodium 135 L, Potassium 4.7, BUN 21 H, Creatinine 1.07, Glucose 146 H, Total Bilirubin 0.3, AST 35, ALT 62, Alkaline Phosphatase 79 Microbiology Data (last 24 hrs): 01/05/19 21:16 Wound - Abscess Gram Stain - Final Assessment And Plan - Current Problems (Diagnosis) (1) Abscess Current Visit: Yes Status: Acute (2) Cellulitis of leg, right Current Visit: No Status: Acute (3) Obesity (BMI 35.0-39.9 without comorbidity) Current Visit: Yes Status: Acute - Plan Abscess of left leg: General surgery evaluation pending. Continue IV vancomycin and Levaquin in the meanwhile. - Continue pain control DVT prophylaxis: Lovenox GI prophylaxis: None Diet: Heart healthy Disposition: Pending symptomatic improvement. Anticipate discharge home in the next 24 hr, likely on oral antibiotics. Discharge Plan: Home Plan to discharge in: 24 Hours
[2019-01-06] MEDS ORDERED: GLUCAGON 1 MG/VIAL IM PRN (18:16)
[2019-01-06] MEDS ORDERED: D50W 25 GM/50 ML SYRINGE IV PRN (18:16)
[2019-01-06] MEDS: INSULIN -REGULAR HUMAN 50 UNIT/0.5 ML ML SQ SCH (21:44)
--- NOTE | 2019-01-06 23:17 | P.HP ---
Certification for Inpatient Patient admitted to: Observation With expected LOS: <2 Midnights Patient will require the following post-hospital care: None Practitioner: I am a practitioner with admitting privileges, knowledge of patient current condition, hospital course, and medical plan of care. Services: Services provided to patient in accordance with Admission requirements found in Title 42 Section 412.3 of the Code of Federal Regulations Patient History Date of Service: 01/05/19 Reason for admission: Abscess of left knee History of Present Illness: Patient is a 48yo who was admitted to the hospital with left knee swelling. Patient had fallen and suffered inflammation of the left knee. Patient also had flunctuance. Patient had an incision and debridement done in the ER. CT scan revealed there was no joint involvement. Patient is admitted to the hospital for further treatment. Patient has a lot of tenderness and pain. He will need IV antibiotics at this time. We will get general surgery consultation as well. Allergies No Known Allergies Allergy (Verified 01/06/19 00:06) Home Medications: Glimepiride 2 mg PO BID 01/06/19 Ibuprofen [Ibu] 1 tab PO Q6H PRN 01/06/19 Losartan/Hydrochlorothiazide [Losartan-Hctz 100-25 mg Tab] 1 tab PO BID Metformin HCl 1 tab PO BID 01/06/19 Pravastatin Sodium 1 tab PO DAILY 01/06/19 - Past Medical/Surgical History Has patient received pneumonia vaccine in the past: No Diabetic: No Past Medical History: Patient denies medical history -: cyst/boil drainage - Family History Father History Unknown: Yes - Social History Smoking Status: Never smoker Alcohol use: Yes CD- Drugs: No Caffeine use: No Place of Residence: Home Review of Systems 10-point ROS is otherwise unremarkable Physical Examination - Vital Signs Temperature: 97.2 F Blood Pressure: 114/59 Pulse: 70 Respirations: 18 Pulse Ox (%): 98 - Physical Exam General: Alert, In no apparent distress, Oriented x3 HEENT: Atraumatic, PERRLA, Mucous membr. moist/pink, EOMI, Sclerae nonicteric Neck: Supple, 2+ carotid pulse no bruit, No LAD, Without JVD or thyroid abnormality Respiratory: Clear to auscultation bilaterally, Normal air movement Cardiovascular: Regular rate/rhythm, Normal S1 S2, No murmurs Gastrointestinal: Normal bowel sounds, Soft and benign, Non-distended, No tenderness Musculoskeletal: Swelling, Erythema, Tenderness, Warmth Integumentary: No rashes Neurological: Normal gait, Normal speech, Normal strength at 5/5 x4 extr, Normal tone, Sensation intact, Cranial nerves 3-12 intact, Normal affect Lymphatics: No axilla or inguinal lymphadenopathy - Studies Microbiology Data (last 24 hrs): 01/05/19 21:16 Wound - Abscess Gram Stain - Final Assessment & Plan - Problems (Diagnosis) (1) Abscess Current Visit: Yes Status: Acute (2) Obesity (BMI 35.0-39.9 without comorbidity) Current Visit: Yes Status: Acute (3) Cellulitis of leg, right Current Visit: No Status: Acute - Plan 1. Continue with IV antibiotic 2. Continue with local wound care 3. Wound care consultation/surgical consultation 4. Gentle IV hydration 5. Monitor CBC 6. Monitor blood sugar closely 7. Pain control 8. GI and DVT prophylaxis Discharge Plan: Home Plan to discharge in: 48 Hours - Advance Directives Does patient have a Living Will: No Does patient have a Durable POA for Healthcare: No - Code Status/Comfort Care Code Status Assessed: Yes Code Status: Full Code Critical Care: No Time Spent Managing PTS Care (In Minutes): 45
[2019-01-07] MEDS: VANCOMYCIN 2 GM in NA CHLORIDE 0.9% 500 ML IVPB SCH (00:34)
[2019-01-07] MEDS: NA CHLORIDE 0.9% 1,000 ML IV SCH (05:20)
[2019-01-07] MEDS: INSULIN -REGULAR HUMAN 50 UNIT/0.5 ML ML SQ SCH ×2 (07:30→11:30)
--- NOTE | 2019-01-07 11:24 | P.SSS ---
Patient History Date of Service: 01/07/19 Reason for admission: Abscess of left knee History of Present Illness: Patient is a 48yo who was admitted to the hospital with left knee swelling. Patient had fallen and suffered inflammation of the left knee. Patient also had flunctuance. Patient had an incision and debridement done in the ER. CT scan revealed there was no joint involvement. Patient is admitted to the hospital for further treatment. Patient has a lot of tenderness and pain. He will need IV antibiotics at this time. We will get general surgery consultation as well. Allergies No Known Allergies Allergy (Verified 01/06/19 00:06) Home medications list reviewed: Yes Home Medications: Glimepiride 2 mg PO BID 01/06/19 Ibuprofen [Ibu] 1 tab PO Q6H PRN 01/06/19 Losartan/Hydrochlorothiazide [Losartan-Hctz 100-25 mg Tab] 1 tab PO BID Metformin HCl 1 tab PO BID 01/06/19 Pravastatin Sodium 1 tab PO DAILY 01/06/19 Sulfamethoxazole/Trimethoprim [Bactrim Ds Tablet] 1 each PO BID #20 tablet 01/07 - Past Medical/Surgical History Has patient received pneumonia vaccine in the past: No Diabetic: No -: cyst/boil drainage - Family History Father History Unknown: Yes - Social History Smoking Status: Never smoker Alcohol use: Yes CD- Drugs: No Caffeine use: No Place of Residence: Home Review of Systems 10-point ROS is otherwise unremarkable Physical Examination - Vital Signs Temperature: 97.6 F Blood Pressure: 146/77 Pulse: 60 Respirations: 17 Pulse Ox (%): 97 - Physical Exam General: Alert, In no apparent distress, Oriented x3 HEENT: Atraumatic, PERRLA, Mucous membr. moist/pink, EOMI, Sclerae nonicteric Neck: Supple, 2+ carotid pulse no bruit, No LAD, Without JVD or thyroid abnormality Respiratory: Clear to auscultation bilaterally, Normal air movement Cardiovascular: Regular rate/rhythm, Normal S1 S2 Gastrointestinal: Normal bowel sounds, No tenderness Musculoskeletal: Other (Abscess in left knee, erythema improved. Drainage also improved.) Integumentary: No rashes Neurological: Normal gait, Normal speech, Normal strength at 5/5 x4 extr, Normal tone, Normal affect Lymphatics: No axilla or inguinal lymphadenopathy - Studies Microbiology Data (last 24 hrs): 01/05/19 21:16 Wound - Abscess Gram Stain - Final - Diagnosis (Problem(s)) (1) Abscess Current Visit: Yes Status: Acute (2) Cellulitis of leg, right Current Visit: No Status: Acute (3) Obesity (BMI 35.0-39.9 without comorbidity) Current Visit: Yes Status: Acute Treatment Summary: Patient was admitted for an abscess of the left leg. He was started on IV antibiotics. General surgery was consulted. He did get an I and D in the emergency room. He symptomatically improved. Cultures remained negative. He was then cleared for discharge by General Surgery. He was recommended to follow up with general surgery in 1 week. He was discharged home on oral Bactrim to complete a 10 day course. He otherwise remained stable throughout the stay. He was ambulating prior to discharge, tolerating an oral diet and doing well. He was hemodynamically stable as well. - Disposition Discharge Date: 01/07/19 Disposition: ROUTINE DISCHARGE Condition: GOOD Consultations: Dr. Glez, surgery Patient Discharge Instructions: Please follow up with primary care physician in 2-3 days. Please follow up with Dr. lGez in 1-2 week. Please return to the emergency room for worsening symptoms. New medication: Bactrim, an antibiotic for your wound Diet: ADA Activity: Ad mino Time Spent Managing Pts Care (In Minutes): 45
[2019-01-07] MEDS: HYDROMORPHONE HCL 1 MG/ML INJ IV PRN (12:19)
--- NOTE | 2019-01-07 12:43 | EKG ---
Test Date: 2019-01-05 Test Time: 19:24:28 Drug Abuse Resistance Education Officer: EYAD MEASUREMENT RESULTS: Intervals: Rate: 103 OK: 142 QRSD: 76 QT: 324 QTc: 424 [place]: P: 43 OK: 142 QRS: 33 T: 5 INTERPRETIVE STATEMENTS: Sinus tachycardia Nonspecific T wave abnormality Abnormal ECG No previous ECG available for comparison Electronically Signed On 01-07-19 07:13:51 CDT by Lexx Holloway
[2019-01-07 14:39] VITALS: BP 138/73; TEMP 97.2
--- NOTE | 2019-01-08 14:24 | RAD REPORT ---
EXAM DESCRIPTION: CT - Knee Left W Con - 01/06/2019 3:38 am CLINICAL HISTORY: 48 years Male septic arthritis COMPARISON: None TECHNIQUE: Images were obtained in axial, sagittal, and coronal planes. Intravenous contrast was adm inistered. This exam was performed according to our departmental dose-optimization program which includes use of Automated Exposure Control, adjustment of the mA and/or kV according to patient size and/or use of i terative reconstruction technique. FINDINGS: Extensive increased attenuation is seen involving the prepatellar soft tissues extending l aterally. Increased soft tissue attenuation is also seen involving the subcutaneous fat of the latera l left knee extending distally in the region of the lower leg. Subcutaneous emphysema is identified i nvolving the prepatellar soft tissues extending laterally with abnormal increased attenuation present possibly foreign body or blood products. Ill-defined fluid is identified laterally as well as within the midline. This fluid collection measures 11 cm in longitudinal dimension, 2 cm in transverse dime nsion, and 6 cm in anterior posterior dimension. Phlegmon and developing abscess would have this appe arance. Disruption of the skin surface is identified at the level of the inferior patella. No definit e joint effusion is seen. No disruption lateral patellar retinaculum. No cortical disruption. No abnormal periosteal reaction. IMPRESSION: Findings consistent with gangrenous cellulitis, edema, phlegmon, and developing abscess soft tissues anterior and lateral left knee. Inflammatory changes are seen involving the lateral left lower leg as well. No definite joint effusion or joint communication to confirm septic arthritis. No CT evidence for osteomyelitis. Defect anterior skin surface. Foreign body versus blood products prep atellar soft tissues. Electronically signed by: Chanel Ayers MD 01/05/2019 11:33 PM CDT Due to temporary technical issues with the PACS/Fluency reporting system, reports are being signed by the in house radiologist as a courtesy to ensure prompt reporting. The interpreting radiologist is f nehemiahly responsible for the content of the report.
== END 2019-01-07 12:27 | disposition home or self-care (01) ==
LOC: ER 18:07 → 2ND 23:24
PROVIDERS: ADMIT Hospitalist; ATTEND Family Medicine
PROC: 0J9N0ZZ Drainage of Right Lower Leg Subcutaneous Tissue and Fascia, Open Approach (ICD-10-PCS; principal; 2019-01-05)
DX: L02.415 Cutaneous abscess of right lower limb (principal); L03.115 Cellulitis of right lower limb; R00.0 Tachycardia, unspecified; R94.31 Abnormal electrocardiogram [ECG] [EKG]; E11.9 Type 2 diabetes mellitus without complications; Z79.84 Long term (current) use of oral hypoglycemic drugs; E66.9 Obesity, unspecified; Z68.38 Body mass index [BMI] 38.0-38.9, adult; Z91.81 History of falling
CPT/HCPCS: 10060; 96365; 93005; 87040 ×2; 87070; 85025 ×2; 80048 ×2; 36415 ×2; 87205; 85610; 82962 ×4; 80076; 83605; 85730; 85652; 80202; 84145; 86140; 73701; 96375; 99285; Q9967; G0378 ×2; 81003; 81015; J1170; J2001; J2405; J3010; J7030

== ENCOUNTER 2021-11-25 19:36 | Emergency (ER) | payer BC ==
[2021-11-25] MEDS ORDERED: IBUPROFEN 400 MG TAB ONE (20:14)
--- NOTE | 2021-11-25 20:34 | ER ---
Nurse's Notes [facility] Name: Jeff Keller Age: 51 yrs Sex: Male : 1970 Arrival Date: 11/25/2021 Time: 19:38 Bed 11 Private MD: Diagnosis: Fall on same level, unspecified;Abrasion, left knee;Cellulitis of left lower limb-KNEE Presentation: 11/25 19:57 Chief complaint: Patient states: he tripped and fell earlier today landing on his hands bb and knees injuring his left knee which has an abrasion pt states the last time this happened his knee got infected and he couldn't walk so he didn't want that to happen again. Coronavirus screen: At this time, the client does not indicate any symptoms associated with coronavirus-19. Ebola Screen: No symptoms or risks identified at this time. Initial Sepsis Screen: Does the patient meet any 2 criteria? No. Patient's initial sepsis screen is negative. Does the patient have a suspected source of infection? No. Patient's initial sepsis screen is negative. Risk Assessment: Do you want to hurt yourself or someone else? Patient reports no desire to harm self or others. Onset of symptoms was November 25, 2021. 19:57 Method Of Arrival: Ambulatory bb 19:57 Acuity: RAVINDRA 4 bb Historical: - Allergies: 19:59 No Known Allergies; bb - Home Meds: 19:59 Glimepiride Oral [Active]; losartan Oral [Active]; Metformin Oral [Active]; Pravachol bb Oral [Active]; - PMHx: 19:59 Diabetes - NIDDM; bb - PSHx: 19:59 None; bb - Immunization history:: Client reports receiving the 2nd dose of the Covid vaccine, Moderna. - Social history:: Smoking status: Patient denies any tobacco usage or history of. Screenin:01 Abuse screen: Denies threats or abuse. Nutritional screening: No deficits noted. bb Tuberculosis screening: No symptoms or risk factors identified. Fall Risk None identified. Assessment: 20:01 General: Appears in no apparent distress. Behavior is calm, cooperative. Pain: bb Complains of pain in left knee Pain currently is 3 out of 10 on a pain scale. Neuro: Level of Consciousness is awake, alert, obeys commands, Oriented to person, place, time, situation. Cardiovascular: Capillary refill < 3 seconds Patient's skin is warm and dry. Respiratory: Respiratory effort is even, unlabored. GI: No signs and/or symptoms were reported involving the gastrointestinal system. Derm: Skin is pink, warm \T\ dry. Wound noted left knee Wound is an abrasion. Musculoskeletal: Circulation, motion, and sensation intact. Reports pain in left knee. 21:06 Reassessment: Patient is alert, oriented x 3, equal unlabored respirations, skin bb warm/dry/pink. pt verbalized understanding of and agrees to plan of care discharge instructions given pt ambulated to exit bandage to left knee in place. Vital Signs: 19:57 BP 149 / 92; Pulse 87; Resp 16 S; Temp 97.7(TE); Pulse Ox 100% on R/A; Weight 131.09 kg bb (R); Height 5 ft. 11 in. (180.34 cm) (R); Pain 3/10; 19:57 Body Mass Index 40.31 (131.09 kg, 180.34 cm) bb ED Course: 19:38 Patient arrived in ED. [email or web address] 19:59 Triage completed. bb 19:59 Arm band placed on Patient placed in an exam room, on a stretcher, on pulse oximetry. bb 20:01 Mercedez Tolentino, RN is Primary Nurse. bb 20:01 Patient has correct armband on for positive identification. Bed in low position. Call bb light in reach. 20:07 Tyler Luque MD is Attending Physician. [facility] 20:32 Maikel Coulter MD is Referral Physician. [facility] 20:37 XRAY Knee LEFT 3 view In Process Unspecified. EDMS 21:07 Dressings: bandaid to left knee covered by an lion wrap. bb 21:07 No provider procedures requiring assistance completed. Patient did not have IV access bb during this emergency room visit. Administered Medications: 20:07 Drug: Motrin (ibuprofen) 800 mg Route: PO; bb 21:05 Follow up: Response: No adverse reaction bb 21:05 Drug: Bactroban (mupirocin) Ointment 2 % 1 application Route: Topical; Site: affected bb area; 21:05 Follow up: Response: Medication administered at discharge. bb 21:05 Drug: Bactrim (trimethoprim-sulfamethoxazole) (160 mg-800 mg (DS) 1 tablet Route: PO; jaylene 21:05 Follow up: Response: Medication administered at discharge. jaylene 21:05 Drug: KeFLEX (cephalexin) 500 mg Route: PO; jaylene 21:06 Follow up: Response: Medication administered at discharge. jaylene Outcome: 20:34 Discharge ordered by . linda 21:07 Discharged to home ambulatory. jaylene 21: Condition: stable 21:07 Discharge instructions given to patient, Instructed on discharge instructions, follow up and referral plans. medication usage, wound care, Demonstrated understanding of instructions, follow-up care, medications, wound care, Prescriptions given X 3. 21:08 Patient left the ED. jaylene Signatures: Dispatcher [employer] EDMS Tyler Luque MD MD cha Ballard, Brenda, ERIC RN Lissette Vargas [email or web address]
--- NOTE | 2021-11-25 20:34 | EDPHYS ---
Physician Documentation [facility] Name: Jeff Keller Age: 51 yrs Sex: Male : 1970 Arrival Date: 11/25/2021 Time: 19:38 Bed 11 Private MD: ED Physician Tyler Luque HPI: 11/25 20:23 This 51 yrs old Male presents to ER via Ambulatory with complaints of Fall linda Injury, Knee Injury. 20:23 Details of fall: The patient fell from an upright position, while walking. Onset: The linda symptoms/episode began/occurred just prior to arrival. Associated injuries: The patient sustained left knee, abrasion, decreased range of motion. Severity of symptoms: At their worst the symptoms were mild, in the emergency department the symptoms are unchanged. The patient has experienced a previous episode, last year. Historical: - Allergies: 19:59 No Known Allergies; bb - Home Meds: 19:59 Glimepiride Oral [Active]; losartan Oral [Active]; Metformin Oral [Active]; Pravachol bb Oral [Active]; - PMHx: 19:59 Diabetes - NIDDM; bb - PSHx: 19:59 None; bb - Immunization history:: Client reports receiving the 2nd dose of the Covid vaccine, Moderna. - Social history:: Smoking status: Patient denies any tobacco usage or history of. ROS: 20:26 Constitutional: Negative for fever, chills, and weight loss, Eyes: Negative for injury, linda pain, redness, and discharge, ENT: Negative for injury, pain, and discharge, Neck: Negative for injury, pain, and swelling, Cardiovascular: Negative for chest pain, palpitations, and edema, Respiratory: Negative for shortness of breath, cough, wheezing, and pleuritic chest pain, Abdomen/GI: Negative for abdominal pain, nausea, vomiting, diarrhea, and constipation, Back: Negative for injury and pain, : Negative for injury, bleeding, discharge, and swelling, Skin: Negative for injury, rash, and discoloration, Neuro: Negative for headache, weakness, numbness, tingling, and seizure, Psych: Negative for depression, anxiety, suicide ideation, homicidal ideation, and hallucinations, Allergy/Immunology: Negative for hives, rash, and allergies, Endocrine: Negative for neck swelling, polydipsia, polyuria, polyphagia, and marked weight changes, Hematologic/Lymphatic: Negative for swollen nodes, abnormal bleeding, and unusual bruising. 20:26 MS/extremity: Positive for abrasion, erythema, pain, swelling, tenderness, of the left knee. Exam: 20:26 Constitutional: This is a well developed, well nourished patient who is awake, alert, linda and in no acute distress. Head/Face: Normocephalic, atraumatic. Eyes: Pupils equal round and reactive to light, extra-ocular motions intact. Lids and lashes normal. Conjunctiva and sclera are non-icteric and not injected. Cornea within normal limits. Periorbital areas with no swelling, redness, or edema. ENT: Nares patent. No nasal discharge, no septal abnormalities noted. Tympanic membranes are normal and external auditory canals are clear. Oropharynx with no redness, swelling, or masses, exudates, or evidence of obstruction, uvula midline. Mucous membranes moist. Neck: Trachea midline, no thyromegaly or masses palpated, and no cervical lymphadenopathy. Supple, full range of motion without nuchal rigidity, or vertebral point tenderness. No Meningismus. Chest/axilla: Normal chest wall appearance and motion. Nontender with no deformity. No lesions are appreciated. Cardiovascular: Regular rate and rhythm with a normal S1 and S2. No gallops, murmurs, or rubs. Normal PMI, no JVD. No pulse deficits. Respiratory: Lungs have equal breath sounds bilaterally, clear to auscultation and percussion. No rales, rhonchi or wheezes noted. No increased work of breathing, no retractions or nasal flaring. Abdomen/GI: Soft, non-tender, with normal bowel sounds. No distension or tympany. No guarding or rebound. No evidence of tenderness throughout. Back: No spinal tenderness. No costovertebral tenderness. Full range of motion. Male : Normal genitalia with no discharge or lesions. Skin: Warm, dry with normal turgor. Normal color with no rashes, no lesions, and no evidence of cellulitis. Neuro: Awake and alert, GCS 15, oriented to person, place, time, and situation. Cranial nerves II-XII grossly intact. Motor strength 5/5 in all extremities. Sensory grossly intact. Cerebellar exam normal. Normal gait. Psych: Awake, alert, with orientation to person, place and time. Behavior, mood, and affect are within normal limits. 20:26 Musculoskeletal/extremity: ROM: intact in all extremities, full active range of motion, full passive range of motion, Circulation is intact in all extremities. Sensation intact. Compartment Syndrome exam of affected extremity: is normal. DVT Exam: negative Homans' sign noted on exam, no appreciated bluish discoloration, no increased warmth, pain, swelling, tenderness, erythema. Vital Signs: 19:57 BP 149 / 92; Pulse 87; Resp 16 S; Temp 97.7(TE); Pulse Ox 100% on R/A; Weight 131.09 kg bb (R); Height 5 ft. 11 in. (180.34 cm) (R); Pain 3/10; 19:57 Body Mass Index 40.31 (131.09 kg, 180.34 cm) MDM: 20:07 Patient medically screened. linda 20:28 Differential diagnosis: closed fracture, contusion, abrasion. Differential diagnosis: linda contusion, fracture, multiple trauma, sprain. Data reviewed: vital signs, nurses notes, radiologic studies, plain films. Data interpreted: media monitor: rate is 87 beats/min, rhythm is regular, Pulse oximetry: on room air is 100 %. Test interpretation: by ED physician or midlevel provider: plain radiologic studies. Counseling: I had a detailed discussion with the patient and/or guardian regarding: the historical points, exam findings, and any diagnostic results supporting the discharge/admit diagnosis, radiology results, the need for outpatient follow up, for definitive care, an nipple threader. 11/25 20:07 Order name: XRAY Knee LEFT 3 view 11/25 20:23 Order name: Ice pack; Complete Time: 20:36 linda Administered Medications: 20:07 Drug: Motrin (ibuprofen) 800 mg Route: PO; 21:05 Follow up: Response: No adverse reaction bb 21:05 Drug: Bactroban (mupirocin) Ointment 2 % 1 application Route: Topical; Site: affected bb area; 21:05 Follow up: Response: Medication administered at discharge. 21:05 Drug: Bactrim (trimethoprim-sulfamethoxazole) (160 mg-800 mg (DS) 1 tablet Route: PO; bb 21:05 Follow up: Response: Medication administered at discharge. bb 21:05 Drug: KeFLEX (cephalexin) 500 mg Route: PO; bb 21:06 Follow up: Response: Medication administered at discharge. bb Disposition Summary: 11/25/21 20:34 Discharge Ordered Location: Home [facility] Problem: new linda Symptoms: have improved linda Condition: Stable linda Diagnosis - Fall on same level, unspecified linda - Abrasion, left knee linda - Cellulitis of left lower limb - KNEE linda Followup: linda - With: Maikel Coulter MD - When: 2 - 3 days - Reason: Recheck today's complaints, Continuance of care, Re-evaluation by your physician Discharge Instructions: - Discharge Summary Sheet linda - Abrasion linda - Cellulitis, Adult, [id number] linda - Abrasion, [id number] linda Forms: - Medication Reconciliation Form linda - Thank You Letter linda - Antibiotic Education linda - Prescription Opioid Use [facility] Prescriptions: - Centany 2 % Topical ointment - apply 1 application by TOPICAL route 3 times per day; 30 gram; Refills: 0, [facility] Product Selection Permitted - Cephalexin 500 mg Oral Capsule - take 1 capsule by ORAL route every 6 hours for 7 days; 28 capsule; Refills: 0, [facility] Product Selection Permitted - Bactrim DS 800-160 mg Oral Tablet - take 1 tablet by ORAL route every 12 hours for 7 days; 14 tablet; Refills: 0, [facility] Product Selection Permitted Signatures: Dispatcher [employer] Tyler Jones MD MD cha Ballard, Brenda, RN RN bb
--- NOTE | 2021-11-25 20:54 | RAD REPORT ---
EXAM DESCRIPTION: RAD - Knee Left 3 View - 11/25/2021 8:35 pm CLINICAL HISTORY: PAIN COMPARISON: Knee Left 3 View dated 12/28/2018 FINDINGS: No acute fracture. No malalignment. No significant focal degenerative changes. Prepatellar soft tissue fullness. IMPRESSION: No acute osseous abnormality involving the left knee.
[2021-11-25] MEDS ORDERED: CEPHALEXIN 250 MG CAP ONE (21:03)
[2021-11-25] MEDS ORDERED: SMZ./TMP. 800/160 MG TABLET ONE (21:03)
[2021-11-25 21:50] VITALS: BP 149/92; TEMP 97.7; O2SAT 100
== END 2021-11-25 21:08 | disposition home or self-care (01) ==
LOC: ER 19:36
DX: L03.116 Cellulitis of left lower limb (principal); W18.30XA Fall on same level, unspecified, initial encounter; E11.9 Type 2 diabetes mellitus without complications